=== PATIENT | female | born 2000 | race Caucasian/White ===

== ENCOUNTER 2022-11-21 18:24 | Emergency (ER) | payer SELFPAY ==
[2022-11-21 19:31] LABS: Bilirubin Neg (Negative); Blood, Urine Negative (Negative); Clarity Clear (Clear); Glucose, Urine (Dipstick) Normal (Negative); Ketone, Urine Negative (Negative); Leukocyte 25 (Negative); Nitrite Negative (Negative); Protein, Urine (Dipstick) Negative (Neg-Trace); Specific Gravity, Urine 1.015 (1.005-1.030); Urobilinogen Normal mg/dL (Less than 2)
[2022-11-21 19:44] LABS: Bacteria/HPF Rare-Few HPF (None Seen); Mucous/LPF Rare LPF (<2+); RBC/HPF None Seen HPF (0-3); Squamous Epithelial 0-3 HPF (0-3)
[2022-11-21 19:46] LABS: Pregnancy Test - Urine (BHCG) POSITIVE (Negative); Pregu Control Background? CLEAR/WHITE (CLR/WHITE); Pregu Control Bar Appear? YES (CONTROL BAR); Specific Gravity 1.015 (1.002-1.036)
[2022-11-21] MEDS ORDERED: Ondansetron ODT 4 MG TAB ONE (20:15)
[2022-11-21 20:52] LABS: #Eosinphils 0.2 10x3/uL (0.0-0.5); #Monocytes 0.4 10x3/uL (0.0-1.1); #Neutrophils 5.1 10x3/uL (1.5-8.4); %Basophils 0.3 % (0.0-2.0); %Eosinophils 1.9 % (0.0-6.0); %Lymphocytes 29.8 % (18.0-47.0); %Monocytes 4.6 % (0.0-10.0); %Neutrophils 63.3 % (40.0-75.0); Hemoglobin 12.7 g/dL (12.0-15.5); Mean Corpuscular HGB CONC 35.8 g/dL (32.0-36.0); Mean Corpuscular Hemoglobin 34.7 pg (27.0-33.0); Mean Platelet Volume 9.1 fl (7.4-10.4); Platelet Count 299 10x3/uL (150-450); RBC Distribution Width 12.4 % (11.5-14.5); Red Blood Cell (RBC) Count 3.66 10x6/uL (3.90-5.03)
[2022-11-21 20:57] LABS: Anion Gap 13 mmol/L (10-20); BUN (Urea Nitrogen) 16 mg/dL (7.0-18.7); Calc. Creatinine Clearance 0 mL/min (70-130); Carbon Dioxide 27 mmol/L (22-29); Chloride 104 mmol/L (98-107); Estimated GFR 127; Glucose 79 mg/dL (70-105); Magnesium 1.7 mg/dL (1.6-2.6); Potassium 3.8 mmol/L (3.5-5.1); Sodium 140 mmol/L (136-145)
[2022-11-21] MEDS ORDERED: Nitrofurantoin Monohyd/M-Cryst 100 MG CAP PO SCH (23:30)
== END 2022-11-21 23:35 | disposition home or self-care (01) ==
LOC: CSHERS 18:24
DX: O23.41 Unspecified infection of urinary tract in pregnancy, first trimester (principal); Z3A.01 Less than 8 weeks gestation of pregnancy
CPT/HCPCS: 76856; 80048; 81003; 81015; 81025; 83735; 84702; 85025; 87086; Q0162

== ENCOUNTER 2022-11-22 09:55 | Emergency (ER) | payer SELFPAY ==
[2022-11-22] MEDS ORDERED: Acetaminophen 325 MG TAB ONE (11:04)
[2022-11-22] MEDS ORDERED: Cephalexin 250 MG CAP ONE (11:05)
== END 2022-11-22 11:12 | disposition home or self-care (01) ==
LOC: CSHERS 09:55
DX: O99.619 Diseases of the digestive system complicating pregnancy, unspecified trimester (principal); O23.40 Unspecified infection of urinary tract in pregnancy, unspecified trimester; Z3A.00 Weeks of gestation of pregnancy not specified
CPT/HCPCS: 99284